=== PATIENT | male | born 1975 | race Caucasian/White ===

== ENCOUNTER 2024-12-20 16:16 | Emergency (ER) | payer OTHER ==
[~2024-12-20] VITALS: Ht 167.6 cm; Wt 70.0 kg
[2024-12-20 16:20] VITALS: O2SAT 97
[2024-12-20 16:26] VITALS: BP 118/83; PULSE 63; RESP 18; TEMP 36.6; O2SAT 100
[2024-12-20] MEDS ORDERED: OMEP20TA23 MT (19:55)
[2024-12-20] MEDS ORDERED: NAPR-681 MT (19:55)
== END 2024-12-20 20:39 | disposition home or self-care (01) ==
LOC: ER 16:16
DX: R07.0 Pain in throat (principal); I10 Essential (primary) hypertension; M54.2 Cervicalgia
CPT/HCPCS: 70490; 99284